=== PATIENT | female | born 1975 | race Caucasian/White ===

== ENCOUNTER 2021-03-29 12:37 | Day surgery (SDC) | payer BC, OTHER ==
[2021-03-29] MEDS ORDERED: Xylocaine 1% Vial 30 ML PF IJ ONE (12:38)
[2021-03-29] MEDS ORDERED: LIDOCAINE HCL 2% 100 MG/5 ML IJ ONE (12:38)
[2021-03-29] MEDS ORDERED: DIPRIVAN 200 MG/20 ML IV ONE ×2 (15:05→15:39)
[2021-03-29] MEDS ORDERED: PROVENTIL 2.5 MG/3 ML NEB IH ONE (15:54)
[2021-03-29 15:56] VITALS: PULSE 86; O2SAT 94
--- NOTE | 2021-03-29 16:46 | XRAY ---
Indication: Bilateral L4-S1 MBB. Intraoperative fluoroscopy provided for 44 seconds. Single digital spot image submitted for interpretation demonstrate posterior needle tips projecting over the expected left and right L4-S1 nerve roots. Correlate with intraoperative findings/report.
--- NOTE | 2021-03-29 16:46 | XRAY ---
44 seconds fluoroscopy time in surgery for bilateral L4-S1 MBB.
[2021-03-29] MEDS ORDERED: Lactated Ringers 1,000 ML IV ONE (17:27)
== END 2021-03-29 15:50 | disposition home or self-care (01) ==
LOC: SDC-PAIN 12:37
PROVIDERS: ATTEND Psychiatry & Neurology Pain Medicine
DX: M47.816 Spondylosis without myelopathy or radiculopathy, lumbar region (principal); M06.9 Rheumatoid arthritis, unspecified; I10 Essential (primary) hypertension; K21.9 Gastro-esophageal reflux disease without esophagitis; J44.9 Chronic obstructive pulmonary disease, unspecified; K50.90 Crohn's disease, unspecified, without complications; D64.9 Anemia, unspecified; Z79.899 Other long term (current) drug therapy
CPT/HCPCS: 64493; 64494; 72020; 77002; 84703; 94640; J2001; J2704; J7609; A9270-GY